=== PATIENT | male | born 1960 | race Caucasian/White ===

== ENCOUNTER → 2017-07-31 | Outpatient (CLI) | payer OTHER ==
--- NOTE | 2017-07-31 14:13 | RADIOLOGY REPORT PS360 ---
HAND-RT 3 VIEWS COMPARISON: None HISTORY: Right hand pain after trauma TECHNIQUE: AP lateral and oblique views FINDINGS: There is no fracture or dislocation. The soft tissues are normal and there are no foreign bodies. IMPRESSION: Negative right hand
== END ==
LOC: RAD 13:50
DX: M79.641 Pain in right hand (principal); G89.11 Acute pain due to trauma